=== PATIENT | male | born 1985 | race Caucasian/White ===

== ENCOUNTER 2018-11-28 12:03 | Emergency (ER) | payer OTHER ==
[2018-11-28 12:08] VITALS: BP 145/91; PULSE 78; TEMP 98.5; BMI 32.1
--- NOTE | 2018-11-28 12:38 | PDOC ---
History of Present Illness - General Chief Complaint: Pain Stated Complaint: BILATERAL CALF PAIN Time Seen by Provider: 11/28/18 12:05 - History of Present Illness Initial Comments: 11/28/18 12:33 33 years old with no significant past medical history presents to the emergency department status post injury to bilateral. Patient was hiking took a fall landed on both his feet which hyperflexed his catheter's resulting in a popping sensation and pain to bilateral calf swelling greater than left. Pain is moderate persistent constant worse with ambulation no significant alleviating factors. Past History - Past Medical History Allergies/Adverse Reactions: Allergies Allergy/AdvReac Type Severity Reaction Status Date / Time No Known Drug Allergies Allergy Verified 11/28/18 12:05 Home Medications: Ambulatory Orders NK [No Known Home Medication] 11/28/18 Anemia: No Asthma: Yes ( A CHILD) Cancer: No Cardiac Disorders: No CVA: No COPD: No CHF: No Dementia: No Diabetes: No GI Disorders: No Disorders: No HTN: No Hypercholesterolemia: No Liver Disease: No Seizures: No Thyroid Disease: No - Surgical History Abdominal Surgery: No Appendectomy: No Cardiac Surgery: No Cholecystectomy: No Lung Surgery: No Neurologic Surgery: No Orthopedic Surgery: Yes (LEFT SHOULDER ARTHROSCOPY 05/09/2015) - Suicide/Smoking/Psychosocial Hx Smoking History: Never smoked Have you smoked in the past 12 months: No Number of Cigarettes Smoked Daily: 2 Information on smoking cessation initiated: No 'Breaking Loose' booklet given: 06/11/15 Hx Alcohol Use: No Drug/Substance Use Hx: No Substance Use Type: Alcohol Hx Substance Use Treatment: No Review of Systems - Review of Systems Comments:: 11/28/18 12:33 ROS: A complete review of 10 out of 10 review of systems is taken and is negative apart from what is previously mentioned below and in the HPI. *Physical Exam - Vital Signs Last Vital Signs Temp Pulse Resp BP Pulse Ox 98.5 F 78 18 145/91 99 11/28/18 12:03 11/28/18 12:03 11/28/18 12:03 11/28/18 12:03 11/28/18 12:03 - Physical Exam Comments: 11/28/18 12:33 Vitals: Triage Vital signs reviewed General Appearance: no acute distress, well nourished well developed, Head: Atraumatic, Extremities: Full range of motion to all extremities, tenderness to palpation to the right calf. Achilles tendons intact bilaterally, pain with flexion and extension of the right foot slightly swollen Skin: Warm and dry, no rashes or lesions, no rash, no petechiae Neuro: Cranial Nerves 2-12 grossly intact, Strength intact to all extremities, Sensation intact to all extremities,Antalgic gait Psych: normal mood, normal affect Medical Decision Making - Medical Decision Making 11/28/18 12:35 History and Examination consistent with Calf Muscle tear partial. Achilles intact. NVI We'll recommend rest ice crutches orthopedic follow-up in 1 week for clearance to return to duty or additional imaging Findings, the need for follow-up and strict return instructions discussed with patient. *DC/Admit/Observation/Transfer Diagnosis at time of Disposition: Gastrocnemius muscle tear Qualifiers: Encounter type: initial encounter Laterality: right Qualified Code(s): S86.111A - Strain of other muscle(s) and tendon(s) of posterior muscle group at lower leg level, right leg, initial encounter - Discharge Dispostion Disposition: HOME Condition at time of disposition: Stable Decision to Admit order: No - Referrals Referrals: Ivan Rivers MD [Staff Physician] - - Patient Instructions Printed Discharge Instructions: Calf Muscle Strain Additional Instructions: Crutches at all times while ambulating. Rest calf's. Ice. [id number] Motrin as directed on package. Follow-up with Dr. Rivers orthopedics by this Tuesday for further recommendations regarding return to duty. Return to emergency department immediately for any severe worsening symptoms chest pain shortness of breath or for any concerns. - Post Discharge Activity
== END 2018-11-28 12:40 | disposition home or self-care (01) ==
LOC: FER 12:03
DX: S86.111A Strain of other muscle(s) and tendon(s) of posterior muscle group at lower leg level, right leg, initial encounter (principal); W18.39XA Other fall on same level, initial encounter; Y93.01 Activity, walking, marching and hiking; Y92.89 Other specified places as the place of occurrence of the external cause
CPT/HCPCS: 99283-25